=== PATIENT | female | born 1935 | race Caucasian/White ===

== ENCOUNTER → 2017-03-18 | Outpatient (CLI) | payer MEDICARE, OTHER ==
[~2017-03-18] MED LIST: ALEV220T14 PO; ATOR10 PO; ATOR10TA15 PO; CALC1TAB87 PO; CALCTAB98 PO; CENTCHW4 CHEW; IBAN150T3 PO; MELA3TAB23 PO; MULTCAP11 PO; RANI150T PO; [UNRECOGNIZED DRUG - OTHER] EACH EYE
[2017-03-18 12:27] LABS: BILIRUBIN, URINE NEG (NEG); BLOOD, URINE NEG (NEG); GLUCOSE,URINE NEG (NEG); KETONE, URINE NEG (NEG); NITRITE,URINE NEG (NEG); PH, URINE 7.5 (5.0-8.5); URINE COLOR YELLOW (YELLW/STRAW); URINE LEUKOCYTE ESTERASE NEG (NEG)
[2017-03-18 12:37] LABS: HEMATOCRIT 42.7 % (35.0-46.0); HEMOGLOBIN 14.5 GM/DL (11.6-15.3); MEAN CELL VOLUME 90.4 FL (80.0-100.0); MEAN CORPUSCULAR HEMOGLOBIN 30.7 PG (27.0-34.0); MEAN PLATELET VOLUME 7.5 FL (7.0-11.0); PLATELET COUNT 271 TH/MM3 (150-450); RED BLOOD COUNT 4.73 MIL/MM3 (4.00-5.30); RED CELL DISTRIBUTION WIDTH 13.7 % (11.6-17.2); WHITE BLOOD COUNT 6.5 TH/MM3 (4.0-11.0)
[2017-03-18 12:40] LABS: INTERNATIONAL NORMALIZED RATIO 1.2 RATIO; PROTHROMBIN TIME - PATIENT 12.1 SEC (9.8-11.6)
[2017-03-18 12:53] LABS: BICARBONATE 29.1 MEQ/L (21.0-32.0); CALCIUM 10.2 MG/DL (8.5-10.1); CREATININE 0.97 MG/DL (0.50-1.00)
--- NOTE | 2017-03-19 15:03 | EKG ---
Date Performed: 03/18/2017 Time Performed: 11:51:08 PTAGE: 82 years EKG: Sinus rhythm . Anterior T wave changes are nonspecific Borderline ECG Since PREVIOUS TRACING , no significant change noted PREVIOUS TRACIN06/08/2013 15.41 DOCTOR: Tomi Bishop Interpretating Date/Time 03/19/2017 15:01:26
== END ==
LOC: CPRE 09:45
PROVIDERS: ATTEND Orthopaedic Surgery
DX: Z01.812 Encounter for preprocedural laboratory examination (principal); Z01.810 Encounter for preprocedural cardiovascular examination; M17.12 Unilateral primary osteoarthritis, left knee; M21.062 Valgus deformity, not elsewhere classified, left knee; M79.609 Pain in unspecified limb; R94.31 Abnormal electrocardiogram [ECG] [EKG]
CPT/HCPCS: 36415; 80048; 81001; 85027; 85610; 85730; 93005

== ENCOUNTER 2017-04-12 05:10 | Inpatient (IN) | payer MEDICARE, OTHER ==
[~2017-04-12] VITALS: Ht 147.3 cm; Wt 58.5 kg
[~2017-04-12 05:10] MED LIST changes: -ATOR10 PO; -CALCTAB98 PO; -MULTCAP11 PO
[2017-04-12] MEDS ORDERED: LACTATED RINGER'S 1000 ML IV PRN (05:30)
[2017-04-12] MEDS ORDERED: ceFAZolin 2 GM PREMIX 50 ML IV SCH (05:30)
[2017-04-12] MEDS ORDERED: POVIDONE IODINE 5% (ANTISEPSIS KIT) 4 APPLICATIONS EACH NARE PRN (05:30)
[2017-04-12] MEDS ORDERED: CHLORHEXIDINE GLUCONATE 4% SOLN 120 ML BTL TOPICAL SCH (05:30)
[2017-04-12] MEDS ORDERED: METOPROLOL TARTRATE 25 MG TAB PO PRN (05:30)
[2017-04-12] MEDS ORDERED: SODIUM CHLORID 0.9% 500 ML IV PRN (05:30)
[2017-04-12] MEDS ORDERED: CHLORHEXIDINE GLUCONATE 2 % 1 PACK (2 CLOTHS) TOPICAL PRN (05:30)
[2017-04-12] MEDS ORDERED: FAT EMULSION 20% INJ 0 ML ONE (05:42)
[2017-04-12] MEDS ORDERED: BUPIVACAINE LIPOSOME PF 1.3% 20 ML VIAL ONE (05:50)
[2017-04-12] MEDS ORDERED: MIDAZOLAM HCL 2 MG/2 ML VIAL ONE (05:51)
[2017-04-12] MEDS ORDERED: LIDOCAINE HCL 1% PF 5 ML AMPULE ONE (05:54)
[2017-04-12 06:00] VITALS: PULSE 71
[2017-04-12] MEDS ORDERED: SODIUM CHLORIDE 0.9% IV SCH ×5 (06:00→09:00)
[2017-04-12] MEDS ORDERED: EXPAREL PERI-ARTICULAR INJECTION (TOTAL VOL. 100 ML) P-ARTICULR SCH ×2 (06:00)
[2017-04-12] MEDS ORDERED: TRANEXAMIC ACID IV SCH ×5 (06:00→09:00)
[2017-04-12] MEDS ORDERED: GENTAMICIN SULFATE 80 MG/2 ML VIAL ONE (06:11)
[2017-04-12] MEDS ORDERED: PROPOFOL 500 MG/50 ML INJ 50 ML ONE (06:24)
[2017-04-12] MEDS ORDERED: ECASA81 PO (06:53)
[2017-04-12] MEDS ORDERED: ACETAMINOPHEN/HYDROcodone 325 MG/7.5 MG TAB PO PRN (07:00)
[2017-04-12] MEDS ORDERED: ZOLPIDEM TARTRATE 5 MG TAB PO PRN (07:00)
[2017-04-12] MEDS ORDERED: Post-op Orders (for Pharmacy) XX ONE (07:00)
[2017-04-12] MEDS ORDERED: MORPHINE SULFATE 4 MG/ML INJ IV PUSH PRN (07:00)
[2017-04-12] MEDS ORDERED: MAGNESIUM HYDROXIDE SUSP 30 ML CUP PO PRN (07:00)
[2017-04-12] MEDS ORDERED: ONDANSETRON HCL 4 MG/2 ML VIAL IVP PRN (09:00)
[2017-04-12] MEDS: MULTIVITAMINS/MINERALS THERAPEUTIC TAB PO SCH (09:00)
[2017-04-12] MEDS ORDERED: ASPIRIN EC 81 MG TABEC PO SCH (09:00)
--- NOTE | 2017-04-12 09:20 | HHI.FF ---
Face to Face Verification Diagnosis: (1) Status post total left knee replacement Physical Therapy Gait training Knee: Total knee, Protocol: Left, Gait training, Full weight bearing Left LE Weight Bearing: WB as tolerated Left LE Range of Motion: Active ROM (active, active-assisted and passive range of motion. Range of motion goal is 0 extension to 135 of flexion.) Nursing Nursing: Dressing changes (to begin on postoperative day 7.) Dressing Changes: Daily dressing change (to begin on postoperative day 7.), Coverderm/Primapore Additional Instructions Steri-Strips are to be removed on postoperative day 14. I have seen patient Nikki Pitt on 04/12/17. My clinical findings support the need for the requested home health care services because: Ltd mobility - disease progression Limited ability to care for self High risk of falls I certify that my clinical findings support that this patient is homebound because: Post-op weakness Unsteady gait/balance Unsafe to leave home unassisted Olive Granados MD (Charles) Apr 12, 2017 09:20
[2017-04-12] MEDS ORDERED: HYDR-3580 PO (09:21)
--- NOTE | 2017-04-12 09:27 | HHI.PR ---
Immediate Post Op Note Procedure Date: Apr 12, 2017 Pre Op Diagnosis: (1) Primary osteoarthritis of left knee Post Op Diagnosis: (1) Status post total left knee replacement Surgeon: Joe Granados M.D. E Commerce Marketing Manager(s): VARSHA Vargas Procedure: Left total knee arthroplasty using Demetri Triathlon prosthesis (uncemented) Findings: There was severe osteoarthritis in the left knee with eburnation and loss of articular cartilage in the lateral compartment primarily but also patellofemoral and medial. There are osteophytes in the patellofemoral lateral to medial compartments. Estimated blood loss: 350 mL Anesthesia: General, Regional Block (adductor canal block), Local (Exparel) Drains: Hemovac (2) IVF Patient to: PACU Patient Condition: Good Implant/Devices: SEE IMPLANT LOG (if applicable) Date/Time of Procedure: SEE SURGICAL CARE RECORD Olive Granados MD (Charles) Apr 12, 2017 09:27
[2017-04-12] MEDS: LACTATED RINGER'S 1000 ML INJ 1,000 ML IV SCH ×2 (09:30→22:51)
--- NOTE | 2017-04-12 09:35 | PD.OP ---
Operative Report Date of Surgery: Apr 12, 2017 Preoperative Diagnosis: (1) Primary osteoarthritis of left knee Postoperative Diagnosis: (1) Primary osteoarthritis of left knee Procedure: Left total knee arthroplasty using [place] Triathlon prosthesis (uncemented) Anesthesia: Spinal with supplemental adductor canal block regional and local with Exparel Surgeon: Joe Granados M.D. Freight Dispatcher(s): VARSHA Vargas Operation and Findings: Indications and Findings: This 82-year-old woman has had long-standing left knee pain that has been progressively worsening and has been nonresponsive to conservative measures as detailed in the history and physical examination. She has had progressive deformity in the knee that has been giving her additional pain. Physical findings showed significant genu valgum with lateral laxity, tenderness on range of motion and crepitation on motion. X-rays showed severe osteoarthritis in the knee with loss of articular cartilage to bone on bone in the lateral compartment, patellofemoral arthrosis as well as medial arthrosis. There is eburnation laterally. Operative findings: There was tricompartmental osteoarthritis in the left knee with loss of articular cartilage to bone on bone lateral compartment, a deficient lateral femoral condyle, eburnation and lateral femur and tibia and significant osteophytes. The prosthesis used was a Demetri Triathlon prosthesis. The femur was a size 4, uncemented, cruciate retaining. The tibial baseplate was a size 3 Tritanium with a 11 mm cruciate retaining X3 polyethylene spacer. The patella was a size 32 mm asymmetric Tritanium backed. The patient was brought to the clean-air operating suite after an adductor canal block regional had been performed. A spinal anesthetic was administered. The position was supine with a small bolster under the hip on the operative side. A pneumatic tourniquet was applied to the upper thigh. The lower extremity was then prepped with alcohol, Hibiclens and ChloraPrep and draped in the usual manner with the knee draped free. An appropriate timeout procedure was carried out. An incision was made from about 3 fingerbreadths above the superior medial pole of patella down the tibial tubercle on the medial side. The incision was deepened through the subcutaneous tissue to the retinacular structures which were exposed medially and laterally. A medial retinacular incision was then made from the superior middle pole of patella down the tibial tubercle and up into the quadriceps tendon splitting it longitudinally and the medial one third. The patella was reflected. The infrapatellar fat pad was debulked. The anterior cruciate ligament was excised. Medial and lateral meniscectomies were initiated. A fenestration was made in the distal femur for the intramedullary referencing guide. A fenestration was made in the proximal tibia for the intramedullary referencing guide. The distal femoral cutting guide and jig were then assembled for a 5, 8 mm cut. When this was in position, the cutting block was stabilized with pins. The jig was removed. The distal femoral cut was then completed with the oscillating saw. The sizing guide was then positioned in place along Whitesides line and the epicondylar axis and stabilized with pins. The femoral size was then determined with the sizing guide. The 4-in-1 cutting block was then positioned in place. Anterior and posterior cuts were made followed by posterior and anterior chamfer cuts taking care to prevent injury to ligamentous structures. Osteophytes were then trimmed from the distal femur. A bone plug was then placed into the fenestration of the distal femur. The proximal tibia was then exposed. The medial and lateral meniscectomies were completed. The proximal tibial cutting guide was then positioned in place and stabilized with a pin for rotation. The depth of cut was then verified with a stylus referencing from the predetermined side. The cutting block was stabilized with pins. The jig was removed. The depth of cut was then verified and adjusted appropriately with the use of the spacer block. The proximal tibial cut was then made with the oscillating saw taking care to prevent injury to neurovascular and ligamentous structures. Proximal tibial bone was removed. The tibial baseplate trial was then positioned in place. After verifying the appropriate size, the base plate trial was positioned in place along with its spacer. The trial femoral component was then impacted into place. The alignment was checked. The trial tibial baseplate was then pinned in place on the tibia. Attention was directed to the patella. The patella drill guide was positioned in place for the appropriate sized patella. Patellar drilling was then carried out. The trial patella was positioned in place. There was some medial laxity and very tight lateral structures at this point. With the trial prosthesis in place, the iliotibial band was pie crusted which gave better mobility and stability. It was still somewhat lax medially therefore the tibial insert was changed to an 11 mm from a 9 mm. This gave further tightness of the fibular collateral ligament. Recession of the fibular collateral ligament was carried out. A lateral retinacular release was carried out from within the joint. At this point the knee was taken through a range of motion again. There was excellent stability without medial laxity and appropriate patellar tracking was noted. Local anesthetic was administered with Exparel in the posterior capsule. The knee was taken through a range of motion which was easily 0 extension to 135 to gravity and 140 with light pressure. The patella trial was removed. The femoral drill holes were made. The femoral trial prosthesis was removed. The tibial spacer was removed. A bone plug was placed into the proximal tibia. The tibial punch was impacted through the proximal tibial punch guide. This was all removed followed by placement of the tibial drill guide. The tibial drill holes were then made. The guide was removed. The cut ends of bone were then cleaned with pulse lavage. The tibial baseplate was then impacted into place and seated appropriately. The spacer was inserted. The the femoral component was then impacted into place and seated appropriately. The patella component was then seated with the patellar vice and tightened appropriately. The knee was taken through a range of motion which was comparable to the previous range of motion with excellent stability in flexion and extension and appropriate patellofemoral tracking. The remainder of the Exparel was then injected throughout the knee as a local anesthetic. Drains were brought out the superior lateral aspect of the suprapatellar pouch. Wound closure then commenced using 0 Vicryl interrupted [id number] sutures for the capsular and fascial structures, 2-0 Vicryl interrupted simple sutures with buried knots for the subcutaneous tissues and 4- 0 Monocryl, tenuous subcuticular closure for the skin. The wound was then dressed with Steri-Strips followed by Optifoam silver impregnated dressing. Sterile soft roll with a cooling pad and Kaushal bandage from the base of the toes to mid thigh were then applied. Patient was then transferred from the operating room to the recovery room in satisfactory condition having tolerated procedure well. Counts are correct. Specimens: None. Estimated blood loss: 350 mL Olive Granados MD (Charles) Apr 12, 2017 09:35
[2017-04-12] MEDS ORDERED: ENALAPRILAT 1.25 MG/ML VIAL IV PUSH PRN (10:00)
[2017-04-12] MEDS ORDERED: cloNIDine HCL 0.1 MG TAB PO PRN (10:00)
[2017-04-12] MEDS: FAMOTIDINE 20 MG TAB PO SCH ×2 (10:00→20:15)
[2017-04-12] MEDS ORDERED: *MEPERIDINE 25 MG INJ VIAL PERIprocedural Use ONLY ONE (10:48)
[2017-04-12] MEDS: KETOROLAC TROMETHAMINE 30 MG/ML (IVP) VIAL IVP SCH ×3 (10:54→22:50)
--- NOTE | 2017-04-12 10:54 | RADRPT ---
EXAM DATE/TIME: 04/12/2017 10:00 [place] COMPARISON: No previous studies available for comparison. INDICATIONS : Post op left knee surgery MEDICAL HISTORY : None. SURGICAL HISTORY : None. ENCOUNTER: Initial ACUITY: 1 day PAIN SCORE: 0/10 LOCATION: Left knee FINDINGS: 2 views of the knee show a total knee prosthesis in good position. No fracture or dislocation is obse rved. Soft tissue swelling is noted. Surgical drain observed. CONCLUSION: Total hip prosthesis in good position. Isidoro Henley Jr., MD on April 12, 2017 at 10:51 Board Certified Radiologist. This report was verified electronically.
[2017-04-12] MEDS ORDERED: PROPOFOL 200 MG/20 ML AMP IV ONE (12:00)
[2017-04-12] MEDS ORDERED: LACTATED RINGER'S 1000 ML INJ 2,000 ML IV ONE (12:00)
[2017-04-12] MEDS ORDERED: PHENYLEPH/NS 1000 MCG/10 ML SYR IV ONE (12:00)
--- NOTE | 2017-04-12 12:04 | PD.CONS ---
[facility] By [facility] Care Physician Kala Izquierdo MD Diagnoses: History of Present Illness Mrs. Pitt is an 82-year-old female. She is hospitalized for an elective left knee surgery. I'm seeing her postop and she is doing well thus far with pain control no nausea or vomiting. Today she has had some hypertensive urgency. She does not have hypertension at baseline and this hypertension could be secondary to preop anxiety. Postop I expect, with anesthesia and pain medicines , but her blood pressure could likely trend down. No complaints when seen. Review of Systems Constitutional: DENIES: Fatigue, Fever, Chills, Night Sweats Eyes: DENIES: Blurred vision, Diplopia, Eye inflammation, Eye pain Ears, nose, mouth, throat: DENIES: Tinnitus, Hearing loss, Vertigo, Nasal discharge Respiratory: DENIES: Apneas, Cough, Snoring, Wheezing Cardiovascular: DENIES: Chest pain, Palpitations, Syncope Gastrointestinal: DENIES: Abdominal pain, Black stools, Bloody stools, Constipation Musculoskeletal: DENIES: Joint pain, Muscle aches, Stiffness, Joint Swelling Integumentary: DENIES: Abnormal pigmentation, Pruritus, Rash, Nail changes Hematologic/lymphatic: DENIES: Bruising, Lymphadenopathy Immunologic/allergic: DENIES: Eczema, Urticaria Neurologic: DENIES: Abnormal gait, Headache, Paresthesias Psychiatric: DENIES: Anxiety, Confusion, Hallucinations Past Family Social History Allergies: Coded Allergies: No Known Allergies (Verified Allergy, Unknown, 04/11/17) Past Medical History 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 Gastroesophageal reflux disease Hyperlipidemia Osteoarthritis Osteopenia Past Surgical History Left nephrectomy Right wrist surgery secondary to fracture Adhesion lysis surgery Varicose vein surgery tonsillectomy Reported Medications Reported Meds & Active Scripts Active Hydrocodone-Acetamin 7.5-325 (Hydrocodone/Acetaminophen) 7.5 Mg-325 Mg Tablet 1 Tab PO Q4H PRN Reported Eye Drop Tears (Peg 400/Hypromellose/Glycerin) 1 %-0.2 %-0.2 % Drops 1 Drop EACH EYE DAILY Ibandronate Sodium 150 Mg Tab 1 Tab PO Q30 DAYS Aleve Arthritis (Naproxen Sodium) 220 Mg Tab 220 Mg PO HS Melatonin Cr (Melatonin) 3 Mg Tab 1 Tab PO HS Atorvastatin (Atorvastatin Calcium) 10 Mg Tab 10 Mg PO HS Ranitidine (Ranitidine HCl) 150 Mg Tab 150 Mg PO BID Centrum (Multiple Vitamins W/ Minerals) 1 Chew 1 Tab CHEW DAILY Calcium 600 with Vitamin D (Calcium Carbonate-Cholecalciferol) 600-400 mg-Unit Tab 1 Tab PO DAILY Active Ordered Medications Administered Medications Medications (Trade) Dose Ordered Sig/Mir Route PRN Reason Start Time Stop Time Status Last Admin Dose Admin Lactated Ringer's 1,000 ml @ 30 mls/hr Q24H PRN IV SEE LABEL COMMENTS 04/12/17 05:30 04/15/17 05:29 04/12/17 06:00 Povidone Iodine (Betadine 5% Antisepsis Kit) 1 applic [employer] PRN EACH NARE SEE LABEL COMMENTS 04/12/17 05:30 04/15/17 05:29 04/12/17 06:00 Chlorhexidine Gluconate (Chlorhexidine 2% Cloth) 3 pack [employer] PRN TOPICAL SEE LABEL COMMENTS 04/12/17 05:30 04/15/17 05:29 04/12/17 05:30 Chlorhexidine Gluconate (Hibiclens 4% Top Soln) 1 applic ONCE TOPICAL 04/12/17 05:30 04/15/17 05:29 04/12/17 06:00 Cefazolin Sodium/ Dextrose 50 ml @ 100 mls/hr [employer] IV 04/12/17 05:30 04/15/17 05:29 04/12/17 07:47 Tranexamic Acid 585 mg/Sodium Chloride 105.85 ml @ 200 mls/ hr ONCE IV 04/12/17 06:00 04/12/17 12:00 04/12/17 07:48 Tranexamic Acid 585 mg/Sodium Chloride 105.85 ml @ 200 mls/ hr ONCE IV 04/12/17 09:00 04/12/17 15:00 04/12/17 10:27 Bupivacaine Liposome 20 ml/ Sodium Chloride 100 ml @ 200 mls/hr ONCE P-ARTICULR 04/12/17 06:00 04/12/17 12:00 04/12/17 07:49 Lactated Ringer's 1,000 ml @ 80 mls/hr [id number] IV 04/12/17 09:00 04/12/17 09:30 Ketorolac Tromethamine (Toradol Inj) 15 mg Q6H IVP 04/12/17 11:00 04/14/17 05:01 04/12/17 10:54 Family History Parkinson's and mother No past medical history in father Social History No smoking of nicotine No drinking of alcohol No illicit drug abuse Physical Exam Vital Signs Vital Signs Date Time Temp Pulse Resp B/P (MAP) Pulse Ox O2 Delivery O2 Flow Rate FiO2 04/12/17 09:52 95.6 62 14 146/67 (93) Nasal Cannula 2 04/12/17 06:13 166/87 (113) 04/12/17 06:00 71 04/12/17 05:54 98.0 70 18 199/90 (126) 95 Physical Exam GENERAL: NAD, A&Ox3 HEAD: Normocephalic. NECK: Supple, trachea midline. No lymphadenopathy. EYES: No scleral icterus. No injection or drainage. CARDIOVASCULAR: Regular rate and rhythm without murmurs, gallops, or rubs. RESPIRATORY: Breath sounds equal bilaterally. No accessory muscle use. GASTROINTESTINAL: Abdomen soft, non-tender, nondistended. MUSCULOSKELETAL: No cyanosis, or edema. Left leg is in a mobilizer. SKIN: Warm and dry. NEURO: No focal neurological deficitis. Imaging Last Impressions Knee X-Ray 04/12/17 0649 Signed Impressions: Service Date/Time: Wednesday, April 12, 2017 10:00 - CONCLUSION: Total hip prosthesis in good position. Isidoro Henley Jr., MD Assessment and Plan Problem List: (1) Primary osteoarthritis of left knee ICD Code: M17.12 - Unilateral primary osteoarthritis, left knee (2) Status post total left knee replacement ICD Code: Z96.652 - Presence of left artificial knee joint Assessment and Plan 82-year-old female admitted secondary to replacement of the left knee Status post total left knee replacement Doing well postop Continue pain treatments as needed Follow hemoglobin in a.m. Physical therapy per orthopedic surgeon's instructions Postop anticoagulation per orthopedic surgeon's discretion History of left renal cancer Renal cancer metastasis to the lung History of left nephrectomy No renal compromise at known baseline Follow clinically Monitor renal function postop Hypertensive urgency No known baseline hypertension May be related to preop anxiety Begin as needed IV Vasotec Begin as needed by mouth clonidine Follow blood pressures Gastroesophageal reflux disease Hyperlipidemia Osteoarthritis Osteopenia No acute changes in these conditions No change to baseline treatments Follows in outpatient DVT prophylaxis Description per surgeon, postop Eder Alas MD Apr 12, 2017 12:04
[2017-04-12] MEDS ORDERED: DO NOT ADM ANY ANTICOAGULANT DRUGS PRN (14:15)
[2017-04-12 15:30] VITALS: BP 157/73; PULSE 77; RESP 18; TEMP 97; O2SAT 94
[2017-04-12 20:00] VITALS: BP 138/72; PULSE 76; RESP 15; TEMP 99.2; O2SAT 93
[2017-04-12] MEDS ORDERED: MELATONIN 5 MG TAB PO SCH (21:00)
[2017-04-12] MEDS ORDERED: ATORVASTATIN 10 MG TAB PO SCH (21:00)
[2017-04-12 21:21] VITALS: O2SAT 94
[2017-04-12] MEDS: ACETAMINOPHEN/HYDROcodone 325 MG/7.5 MG TAB PO PRN (21:37)
[2017-04-13] VITALS: BP 138/71; PULSE 76; RESP 15; TEMP 98.3; O2SAT 93
[2017-04-13] MEDS: ACETAMINOPHEN/HYDROcodone 325 MG/7.5 MG TAB PO PRN (03:47)
[2017-04-13 04:00] VITALS: BP 125/70; PULSE 76; RESP 16; TEMP 98.2; O2SAT 94
[2017-04-13] MEDS: KETOROLAC TROMETHAMINE 30 MG/ML (IVP) VIAL IVP SCH ×2 (06:02→11:00)
--- NOTE | 2017-04-13 06:42 | PD.ORT.PN ---
Subjective Post Op Day #: 1 Subjective Remarks She is doing well. She has minimal complaints other than an ache. Range of Motion 0 extension to 93 of flexion. Distance Walked 6 steps to the bedside commode and back. Objective Vitals Vital Signs Date Time Temp Pulse Resp B/P (MAP) Pulse Ox O2 Delivery O2 Flow Rate FiO2 04/13/17 04:00 98.2 76 16 125/70 (88) 94 04/13/17 00:00 98.3 76 15 138/71 (93) 93 04/12/17 21:21 94 21 04/12/17 20:00 99.2 76 15 138/72 (94) 93 04/12/17 20:00 93 Room Air 04/12/17 15:31 Nasal Cannula 2.00 04/12/17 15:30 97.0 77 18 157/73 (101) 94 04/12/17 15:00 60 14 137/63 (87) 100 Room Air 04/12/17 14:00 98.1 57 14 127/63 (84) 100 Nasal Cannula 2 04/12/17 13:00 56 14 126/66 (86) 100 Nasal Cannula 04/12/17 11:55 58 14 136/75 (95) 97 Nasal Cannula 04/12/17 11:00 53 14 155/80 (105) 97 Nasal Cannula 04/12/17 10:50 97.5 58 14 150/99 (116) 100 Nasal Cannula 04/12/17 10:30 55 14 148/89 (108) 100 Nasal Cannula 04/12/17 10:15 96.3 61 14 141/99 (113) 99 Nasal Cannula 04/12/17 10:00 61 14 144/66 (92) 97 Nasal Cannula 2 04/12/17 09:52 95.6 62 14 146/67 (93) Nasal Cannula 2 I/O 04/12/17 04/12/17 04/12/17 04/13/17 04/13/17 04/13/17 07:00 15:00 23:00 07:00 15:00 23:00 Intake Total 2000 ml 961 ml 733 ml Output Total 850 ml 55 ml Balance 1150 ml 906 ml 733 ml Intake IV Total 2000 ml 961 ml 733 ml Output Urine Total 500 ml Drainage Total 55 ml Estimated Blood Loss 350 ml # Voids 1 1 Imaging Last 24 hours Impressions Knee X-Ray 04/12/17 0649 Signed Impressions: Service Date/Time: Wednesday, April 12, 2017 10:00 - CONCLUSION: Total hip prosthesis in good position. Isidoro Henley Jr., MD Objective Remarks She is resting comfortably, supine in bed, in the [facility]. The neurovascular status is intact. The dressing is dry and intact. Assessment & Plan Ortho Post Op Day #: 1 Problem List: (1) Status post total left knee replacement ICD Codes: Z96.652 - Presence of left artificial knee joint Plan: Continue postop care and PT. Assessment and Plan Condition: Good. Orthopedically stable. DVT prophylaxis: Sequentials, MARY JO stockings, aspirin 81 mg twice daily. Discharge plans: Home with home health care. An appointment was scheduled through the office. Prescriptions: [place] 7.5/325 Olive Granados MD (Charles) Apr 13, 2017 06:42
[2017-04-13 07:22] LABS: AUTOMATED NEUTROPHIL # 6.5 TH/MM3 (1.8-7.7); BASOPHIL % 0.5 % (0.0-2.0); EOSINOPHIL # 0.1 TH/MM3 (0-0.4); EOSINOPHIL % 1.1 % (0.0-4.0); HEMOGLOBIN 10.2 GM/DL (11.6-15.3); LYMPHOCYTE # 1.6 TH/MM3 (1.0-4.8); MEAN CELL VOLUME 87.5 FL (80.0-100.0); MEAN CORPUSCULAR HEMOGLOBIN 30.7 PG (27.0-34.0); MEAN CORPUSCULAR HGB CONC 35.1 % (32.0-36.0); MEAN PLATELET VOLUME 7.1 FL (7.0-11.0); MONO % 10.7 % (0.0-8.0); NEUT % 70.7 % (16.0-70.0); PLATELET COUNT 183 TH/MM3 (150-450); RED BLOOD COUNT 3.31 MIL/MM3 (4.00-5.30); RED CELL DISTRIBUTION WIDTH 13.2 % (11.6-17.2); WHITE BLOOD COUNT 9.1 TH/MM3 (4.0-11.0)
[2017-04-13 07:34] LABS: ALBUMIN 2.6 GM/DL (3.4-5.0); ALT (GPT) 18 U/L (10-53); AST (GOT) 23 U/L (15-37); BLOOD UREA NITROGEN 16 MG/DL (7-18); CALCIUM 8.1 MG/DL (8.5-10.1); CHLORIDE 106 MEQ/L (98-107); CREATININE 0.99 MG/DL (0.50-1.00); GLOMERULAR FILTRATION RATE 54 ML/MIN (>89); GLUCOSE,RANDOM 103 MG/DL (74-106); SODIUM (NA) 138 MEQ/L (136-145)
[2017-04-13 07:36] LABS: ALKALINE PHOSPHATASE 45 U/L (45-117); TOTAL BILIRUBIN ADULT 0.8 MG/DL (0.2-1.0); TOTAL PROTEIN 5.4 GM/DL (6.4-8.2)
[2017-04-13 08:00] VITALS: BP 128/24; PULSE 82; RESP 16; TEMP 97.2; O2SAT 92
--- NOTE | 2017-04-13 08:29 | HHI.DS ---
Discharge Summary Admission Date Apr 12, 2017 at 05:10 Discharge Date: Apr 13, 2017 Admitting Diagnosis Primary osteoarthritis, left knee. Diagnosis: (1) Status post total left knee replacement Diagnosis: Principal ICD Codes: Z96.652 - Presence of left artificial knee joint (2) Primary osteoarthritis of left knee Diagnosis: Principal ICD Codes: M17.12 - Unilateral primary osteoarthritis, left knee Status: Resolved Brief History This is a 82 year old female patient has had very long-standing pain in her left knee nonresponsive to conservative measures. She has significant increase in valgus over the past several years. She has limitation of ambulation and pain on activities of daily living. This has not responded to conservative measures. Physical findings showed genu valgum with significant lateral laxity and diffuse crepitation as well as an effusion. X-ray showed severe loss of articular cartilage to bone on bone in the lateral compartment with osteophytes , eburnation. CBC/BMP: 04/13/17 0658 04/13/17 0658 Significant Findings Laboratory Tests Test 04/13/17 06:58 Red Blood Count 3.31 MIL/MM3 (4.00-5.30) Hemoglobin 10.2 GM/DL (11.6-15.3) Hematocrit 29.0 % (35.0-46.0) Neutrophils (%) (Auto) 70.7 % (16.0-70.0) Monocytes (%) (Auto) 10.7 % (0.0-8.0) Monocytes # (Auto) 1.0 TH/MM3 (0-0.9) Total Protein 5.4 GM/DL (6.4-8.2) Albumin 2.6 GM/DL (3.4-5.0) Calcium Level 8.1 MG/DL (8.5-10.1) Estimat Glomerular Filtration Rate 54 ML/MIN (>89) Imaging Last 72 hours Impressions Knee X-Ray 04/12/17 0649 Signed Impressions: Service Date/Time: Wednesday, April 12, 2017 10:00 - CONCLUSION: Total hip prosthesis in good position. Isidoro Henley Jr., MD PE at Discharge She is resting comfortably, supine in bed, in the [facility]. The neurovascular status is intact. The dressing is dry and intact. Hospital Course The patient was admitted as noted above. The above noted operative procedure was carried out that day. Preoperatively prophylactic antibiotics were administered Ancef according to protocol. These were continued postoperatively. The patient also received tranexamic acid to help with hemostasis according to protocol. In the postanesthesia care unit a continuous passive motion device was initiated. Also initiated were mechanical methods of DVT prophylaxis in the form of MARY JO stockings and sequentials. Physical therapy was initiated on the day of surgery. On postoperative day #1 physical therapy continued. The use of the continuous passive motion device continued. DVT prophylaxis with aspirin 81 mg twice daily was initiated at this time. The patient continued physical therapy throughout the hospitalization. The distance walked and range of motion improved throughout the hospitalization. The patient was discharged on postoperative day 1 with the disposition being to home with home health care. An appointment for follow-up was made prior to admission. Pt Condition on Discharge: Good Discharge Disposition: Disch w/ Home Health Serv Discharge Instructions Diet Instructions: As Tolerated, No Restrictions Activities You Can Perform: Full Weight Bearing, Shower Only-No Bath Activities to Avoid: Lifting/Bending, Strenuous Activity, Bathing, Driving Follow up Referrals: Orthopedics with Olive Granados MD (Charles) New Medications: Aspirin DR (Aspirin DR) 81 Mg Tabdr 81 MG PO BID for Prevent Blood Clot for 30 Days, #60 TAB Hydrocodone/Acetaminophen (Hydrocodone-Acetamin 7.5-325) 7.5 Mg-325 Mg Tablet 1 TAB PO Q4H PRN for PAIN SCALE 1 TO 10, #50 TAB Continued Medications: Atorvastatin (Atorvastatin) 10 Mg Tab 10 MG PO HS for Cholesterol Management, #30 TAB 0 Refills Calcium Carbonate-Cholecalciferol (Calcium 600 with Vitamin D) 600-400 mg-Unit Tab 1 TAB PO DAILY for Calcium Supplement, TAB 0 Refills Ibandronate Sodium (Ibandronate Sodium) 150 Mg Tab 1 TAB PO q30 days Melatonin (Melatonin Cr) 3 Mg Tab 1 TAB PO HS Multiple Vitamins W/ Minerals (Centrum) 1 Chew 1 TAB CHEW DAILY for Nutritional Supplement, TAB 0 Refills Naproxen Sodium (Aleve Arthritis) 220 Mg Tab 220 MG PO HS, TAB Peg 400/Hypromellose/Glycerin (Eye Drop Tears) 1 %-0.2 %-0.2 % Drops 1 DROP EACH EYE DAILY Ranitidine (Ranitidine) 150 Mg Tab 150 MG PO BID for Heartburn Management, #60 TAB 0 Refills Olive Granaods MD (Charles) Apr 13, 2017 08:29
[2017-04-13] MEDS ORDERED: ARTIFICIAL TEARS OPTH SOLN 15 ML BTL EACH EYE SCH (09:00)
[2017-04-13] MEDS ORDERED: ASPIRIN EC 81 MG TABEC PO SCH (09:00)
[2017-04-13] MEDS: MULTIVITAMINS/MINERALS THERAPEUTIC TAB PO SCH (09:07)
[2017-04-13] MEDS: LACTATED RINGER'S 1000 ML INJ 1,000 ML IV SCH (09:08)
[2017-04-13] MEDS: FAMOTIDINE 20 MG TAB PO SCH (09:08)
[2017-04-13] MEDS ORDERED: DOCUSATE SODIUM 100 MG CAP PO SCH (21:00)
[2017-04-29] MEDS ORDERED: IBANDRONATE 150 MG PO SCH (07:00)
== END 2017-04-13 13:43 | disposition home health service (06) | DRG 470 ==
LOC: HSDI 05:10 → EDSTATUS 07:00 → N06B 15:42
PROVIDERS: ADMIT Orthopaedic Surgery; ATTEND Orthopaedic Surgery
PROC: 3E0T3BZ Introduction of Anesthetic Agent into Peripheral Nerves and Plexi, Percutaneous Approach (ICD-10-PCS; 2017-04-12)
PROC: 0SRD0JA Replacement of Left Knee Joint with Synthetic Substitute, Uncemented, Open Approach (ICD-10-PCS; principal; 2017-04-12 06:43)
DX: M17.12 Unilateral primary osteoarthritis, left knee (principal); C78.00 Secondary malignant neoplasm of unspecified lung; E78.5 Hyperlipidemia, unspecified; K21.9 Gastro-esophageal reflux disease without esophagitis; M21.069 Valgus deformity, not elsewhere classified, unspecified knee; I16.0 Hypertensive urgency; Z85.528 Personal history of other malignant neoplasm of kidney; Z90.5 Acquired absence of kidney; M85.80 Other specified disorders of bone density and structure, unspecified site; H40.9 Unspecified glaucoma
CPT/HCPCS: 73560; 80053; 85025; 86850; 86900; 86901; 94150; C1776; C9290; J0690; J1580; J1885; J2175; J2250; J2270; J2370; J2405; J7120